=== PATIENT | female | born 1965 | race Caucasian/White ===

== ENCOUNTER 2017-08-04 15:44 | Emergency (ER) | payer MEDICAID ==
[~2017-08-04] VITALS: Ht 160 cm; Wt 58.9 kg
[~2017-08-04 15:44] MED LIST: MECL12.584 PO
[2017-08-04] MEDS ORDERED: ibuprofen 200mg tablet PO ONE (17:05)
[2017-08-04] MEDS ORDERED: IBUP-1985 PO (17:07)
[2017-08-04 17:50] VITALS: BP 144/78
== END 2017-08-04 17:54 | disposition home or self-care (01) ==
LOC: ER 15:46
DX: M75.102 Unspecified rotator cuff tear or rupture of left shoulder, not specified as traumatic (principal); I10 Essential (primary) hypertension; J45.909 Unspecified asthma, uncomplicated; E11.9 Type 2 diabetes mellitus without complications; M79.7 Fibromyalgia; F12.90 Cannabis use, unspecified, uncomplicated; Z90.49 Acquired absence of other specified parts of digestive tract; Z98.890 Other specified postprocedural states; Z56.0 Unemployment, unspecified; Z88.8 Allergy status to other drugs, medicaments and biological substances
CPT/HCPCS: 73020; 99283